=== PATIENT | female | born 1995 | race American Indian/Alaskan Native ===

== ENCOUNTER 2018-10-07 19:23 | Emergency (ER) | payer SELFPAY ==
--- NOTE | 2018-10-07 19:42 | Emergency Department Report ---
Chief Complaint: Psych Stated Complaint: MED CLEARANCE Time Seen by Provider: 10/07/18 19:35 - HPI History of Present Illness: This is a 22 y.o. F. that presents to the ER from [facility] for a STD screening. Patient states she was accused of having intercourse last night but denies. Patient states she haven't had intercourse since being there. She denies vaginal discharge, pelvic pain, back pain, urinary frequency, urgency, or dysuria. - ROS Review of Systems: : denies dysuria, urinary frequency, urgency, discharge - Exam Vital Signs: Vital Signs 10/07/18 19:46 Temperature 98 F Pulse Rate 106 H Respiratory 18 Rate Blood Pressure 119/77 O2 Sat by Pulse 97 Oximetry MSE screening note: Focused history and physical exam performed. Due to findings the following was ordered: ED Medical Decision Making - Medical Decision Making This is a 22-year-old female that presents for STD screening. This is a nonmedical emergency complaint. Patient is stable and was examined by me. Patient denies vaginal discharge, pelvic pain, back pain, urinary frequency, urgency, or dysuria. Patient was instructed to Follow-up with a primary care doctor or the health department for full STD screening. At time of discharge, the patient does not seem toxic or ill in appearance. No acute signs of distress noted. Patient agrees to discharge treatment plan of care. No further questions noted by the patient. ED Disposition for MSE Clinical Impression: Feared complaint without diagnosis Disposition: DC-01 TO HOME OR SELFCARE Is pt being admited?: No Does the pt Need Aspirin: No Condition: Stable Instructions: Sexually Transmitted Diseases (ED), Safe Sex (ED) Additional Instructions: Follow up with a primary care doctor or the Health Department for full STD screening. Referrals: [facility] [Outside] - 3-5 Days [facility] [Outside] - 3-5 Days [facility] [Outside] - 3-5 Days [facility] [Outside] - 3-5 Days Time of Disposition: 19:42
[2018-10-07 21:40] VITALS: BP 124/72
== END 2018-10-07 21:10 | disposition home or self-care (01) ==
LOC: ED 19:23
DX: Z71.1 Person with feared health complaint in whom no diagnosis is made (principal)